=== PATIENT | male | born 1955 | race Caucasian/White ===

== ENCOUNTER 2018-10-27 16:22 | Emergency (ER) | payer SELFPAY ==
[~2018-10-27] VITALS: Ht 170.2 cm; Wt 104.5 kg
[2018-10-27 16:28] VITALS: TEMP 97.5
[2018-10-27 17:00] LABS: BASO # 0.1 (0.0-0.2); BASO % 0.6 % (0.0-2.0); EOS # 0.2 (0.0-0.7); EOS % 2.6 % (0-4.0); GRAN # 6.2 (1.4-6.5); GRAN % 72.7 % (42.2-75.2); HEMATOCRIT 48.9 % (42.0-52.0); HEMOGLOBIN 17.4 g/dl (13.5-18.0); LYMPH # 1.4 (1.2-3.4); LYMPH % 16.5 % (20.0-51.0); MEAN CELL VOLUME 88 fl (80.0-100.0); MEAN CORPUSCULAR HEMOGLOBIN 31 pg (27.0-31.0); MEAN CORPUSCULAR HGB CONC 36 g/dl (33.0-37.0); MEAN PLATELET VOLUME 10.1 fl (7.4-10.4); MONO # 0.6 (0.1-0.6); MONO % 7.4 % (1.7-9.3); PLATELET COUNT 162 K/mm3 (130-400); RED BLOOD COUNT 5.56 M/mm3 (4.20-5.60); REDCELL DISTRIBUTION WIDTH-CV 11.8 % (11.5-14.5)
[2018-10-27 17:08] LABS: ALANINE AMINOTRANSFERASE 38 U/L (21-72); ALBUMIN 4.1 gm/dL (3.5-5.0); ALKALINE PHOSPHATASE 61 U/L (50-136); ANION GAP 8 mmol/L (7-16); AST,SGOT 96 U/L (15-37); BILIRUBIN,TOTAL 0.6 mg/dL (0.0-1.0); BLOOD UREA NITROGEN 16 mg/dL (9-20); CALCIUM 9.8 mg/dL (8.4-10.2); CARBON DIOXIDE 27 mmol/L (22-30); CHLORIDE 102 mmol/L (98-107); CREATININE, serum 0.87 mg/dL (0.66-1.25); GLUCOSE 133 mg/dL (74-106); LIPASE 37 U/L (23-300); SODIUM 137 mmol/L (137-145); TOTAL PROTEIN 7.3 gm/dL (6.4-8.2)
[2018-10-27 17:11] LABS: C-REACTIVE PROTEIN < 0.5 mg/dL (0.0-0.9)
[2018-10-27 19:57] VITALS: BP 134/85; PULSE 68
== END 2018-10-27 19:57 | disposition short-term general hospital (02) ==
LOC: COL.ER 16:22
PROVIDERS: Emergency Medicine
DX: I21.4 Non-ST elevation (NSTEMI) myocardial infarction (principal)
CPT/HCPCS: J1644

== ENCOUNTER → 2020-07-19 | Outpatient (CLI) | payer SELFPAY ==
[~2020-07-19] MED LIST: ASPIRIN E.C. 8181 MG PO; CEPHALEXIN500 M1 PO; COREG 25MG25 MG/TAB PO; COZAAR 25MG25 MG/TAB PO; LASIX 40MG TABL40 MG PO; LIPITOR 40MG TA40 MG PO; NITROSTAT0.4 MG/TAB SL; PLAVIX 75MG TAB75 MG PO; TYLENOL 500MG500 MG PO
== END ==
LOC: COL.LAB 08:00 → COL.CAR 07-25 07:00 → EDSTATUS 07-25 07:00
DX: U07.1 COVID-19 (principal)

== ENCOUNTER 2020-08-28 08:40 | Day surgery (SDC) | payer MEDICARE, OTHER ==
[2020-08-28] VITALS (9 sets, daily range): BP systolic 102–136; BP diastolic 57–83; PULSE 58–75; TEMP 97.5–98
[~2020-08-28] VITALS: Ht 167.6 cm; Wt 116.2 kg
[2020-08-28] MEDS ORDERED: ASPIRIN E.C. 8181 MG PO (10:40)
[2020-08-28] MEDS ORDERED: TYLENOL 500MG500 MG PO (10:41)
[2020-08-28] MEDS ORDERED: LIPITOR 40MG TA40 MG PO (10:41)
[2020-08-28] MEDS ORDERED: COREG 25MG25 MG/TAB PO (10:42)
[2020-08-28] MEDS ORDERED: PLAVIX 75MG TAB75 MG PO (10:42)
[2020-08-28] MEDS ORDERED: LASIX 40MG TABL40 MG PO (10:43)
[2020-08-28 10:44] LABS: HEMATOCRIT 41.6 % (42.0-52.0); HEMOGLOBIN 14.8 g/dl (13.5-18.0); MEAN CELL VOLUME 90 fl (80.0-100.0); MEAN CORPUSCULAR HEMOGLOBIN 32 pg (27.0-31.0); MEAN CORPUSCULAR HGB CONC 36 g/dl (33.0-37.0); MEAN PLATELET VOLUME 10.5 fl (7.4-10.4); PLATELET COUNT 144 K/mm3 (130-400); RED BLOOD COUNT 4.61 M/mm3 (4.20-5.60); REDCELL DISTRIBUTION WIDTH-CV 12.1 % (11.5-14.5)
[2020-08-28] MEDS ORDERED: NITROSTAT0.4 MG/TAB SL (10:44)
[2020-08-28] MEDS ORDERED: COZAAR 25MG25 MG/TAB PO (10:44)
[2020-08-28 10:47] LABS: PROTHROMBIN TIME 11.7 SECONDS (9.7-12.8)
[2020-08-28 10:56] LABS: CALCIUM 9.5 mg/dL (8.4-10.2); CREATININE, serum 0.86 (0.66-1.25); POTASSIUM 4.5 mmol/L (3.4-5.0)
--- NOTE | 2020-08-28 14:29 | NUR ---
Pt transferred up to room 359,report from Magno Barron to Magno Espinozachargemaster analyst Nurse.
--- NOTE | 2020-08-28 15:20 | NUR ---
Pt up to room 359, A&O, independent in room, on room air, breathing is even and unlabored, pt on tele-paced. Pt has Lt chest pacer site, covered w/ gauze, old drainage on site, light pink. No active bleeding noted, pt had ice pack to site while in express. Stated he will ask when he wants another, pt requested tylenol, administered PRN. LAC INT IV flushes w/o issue. Pt denies any dizziness, N/v/D, chest pain, abdominal pain, numbness or tingling. Pulses strong bilaterally. Pt had lt arm in sling. No further needs noted. Pt provided w/ lunch box and drink.
--- NOTE | 2020-08-28 17:39 | NUR ---
Pt doing well, Lt sd chest site still CDI, no bleeding noted, Pt sitting in recliner, doing well, eating dinner at this time. No issues noted.
--- NOTE | 2020-08-28 20:35 | NUR ---
Patient assessed at this time. Alert and oriented x 4, and able to make needs known. Denies having pain and discomfort at this time. Peripheral INT to left AC. Denies SOB and dyspnea. LS CTA. Respirations even and unlabored. HRR. Telemetry in place. Dressing to left chest pacemaker site is CDi. Sling to left arm. Denies discomfort to area at this time. Capillary refill less than 3 seconds. Non-tenting skin turgor. BSAx4. Abdomen soft and non-tender. 1+ edema BLE. Voices no questions, needs, or concerns at this time. Resting in bed with call light within reach.
--- NOTE | 2020-08-28 23:15 | NUR ---
Patient given PRN APAP as requested for level 3 pain to surgical site on left chest. Voices no further questions, needs, or concerns at this time.
[2020-08-29 03:12] VITALS: BP 100/59; PULSE 57; TEMP 97.9
--- NOTE | 2020-08-29 05:22 | NUR ---
Patient has been resting in bed with call light within reach. Received PRN APAP once this shift for discomfort to pacemaker site. Has denied pain since then. Dressing to area is CDI. Voies no further questions, needs, or concerns at this time. Resting in bed with call light within reach.
--- NOTE | 2020-08-29 05:50 | NUR ---
Patient given PRN APAP as requested for level 2 pain to left chest at this time. Device download completed and put on chart. Voices no further questions, needs, or concerns at this time. Resting in bed with call light within reach.
[2020-08-29 07:58] VITALS: BP 121/79; PULSE 58; TEMP 97.8
[2020-08-29 08:01] LABS: BASO % 0.4 % (0.0-2.0); EOS # 0.3 (0.0-0.7); EOS % 4.2 % (0-4.0); GRAN # 4.6 (1.4-6.5); GRAN % 62.3 % (42.2-75.2); HEMATOCRIT 39.5 % (42.0-52.0); HEMOGLOBIN 14.2 g/dl (13.5-18.0); LYMPH # 1.7 (1.2-3.4); LYMPH % 22.2 % (20.0-51.0); MEAN CELL VOLUME 89 fl (80.0-100.0); MEAN CORPUSCULAR HEMOGLOBIN 32 pg (27.0-31.0); MEAN CORPUSCULAR HGB CONC 36 g/dl (33.0-37.0); MEAN PLATELET VOLUME 10.7 fl (7.4-10.4); MONO # 0.8 (0.1-0.6); MONO % 10.6 % (1.7-9.3); PLATELET COUNT 138 K/mm3 (130-400); RED BLOOD COUNT 4.44 M/mm3 (4.20-5.60); REDCELL DISTRIBUTION WIDTH-CV 12.1 % (11.5-14.5)
[2020-08-29 08:13] LABS: ALBUMIN 3.9 gm/dL (3.5-5.0); BILIRUBIN,TOTAL 0.6 mg/dL (0.0-1.0); CALCIUM 9.2 mg/dL (8.4-10.2); CREATININE, serum 0.88 (0.66-1.25); POTASSIUM 4.2 mmol/L (3.4-5.0); TOTAL PROTEIN 6.7 gm/dL (6.4-8.2)
--- NOTE | 2020-08-29 08:45 | NUR ---
Pt assessment completed nand charted, medications administered per mar, Pt sitting in recliner, finished breakfast. pt A&O, independent in room, on room air, breathing is even and unlabored. HRRR. LS diminished throughout. Pulses strong bilaterally, no edema noted. Pt rating pain 2/10, some tenderness to Left chest, left chest site it CDI, covered w/ gauze and paper tape. Pt received tylenol PRN w/ nightshift just prior to shift change. Pt denies SOB, N/V/D. No further concerns expressed. Call light within reach.
[2020-08-29] MEDS ORDERED: CEPHALEXIN500 M1 PO (10:07)
--- NOTE | 2020-08-29 12:03 | NUR ---
Pt discharge instructions discussed and reviewed w/ patient who verbalized understanding. LAC INT IV dc'd w/ cath tip intact and no issues. Cardiology in to assess patient, removed gauze and paper tape. Site has mild bruising, otherwise CDI. Pt verbalized understanding, all questions answered. No further needs. pt escorted out via WC w/ this nurse, [facility]RET arrived to transport pt home.
== END 2020-08-29 12:05 | disposition home or self-care (01) ==
LOC: COL.CAR 08:40 → MEDICAL 14:18 → COL.CAR 08-29 12:05
PROVIDERS: Internal Medicine Cardiovascular Disease
DX: I11.0 Hypertensive heart disease with heart failure (principal); I50.22 Chronic systolic (congestive) heart failure; I42.0 Dilated cardiomyopathy; I25.5 Ischemic cardiomyopathy; I97.190 Other postprocedural cardiac functional disturbances following cardiac surgery; I47.2 Ventricular tachycardia; E78.5 Hyperlipidemia, unspecified; I25.10 Atherosclerotic heart disease of native coronary artery without angina pectoris; Z86.19 Personal history of other infectious and parasitic diseases; Z95.1 Presence of aortocoronary bypass graft; Z79.02 Long term (current) use of antithrombotics/antiplatelets; Z79.899 Other long term (current) drug therapy; Z79.82 Long term (current) use of aspirin
CPT/HCPCS: OP; C1721; C1769; C1777; C1898; J0690; J2704; J7030